=== PATIENT | male | born 1975 | race Caucasian/White ===

== ENCOUNTER 2016-10-23 06:10 | Emergency (ER) | payer BC ==
[2016-10-23] MEDS ORDERED: Sodium Chloride 0.9% 1,000 ML IV ONE ×2 (06:13→06:41)
[2016-10-23] MEDS ORDERED: EPINEPHrine 1:10,000 1 MG/10 ML Syringe ONE (06:19)
[2016-10-23] MEDS ORDERED: Lactated Ringers 1,000 ML IV ONE (06:42)
--- NOTE | 2016-10-23 07:27 | EDM.PDOC ---
ED HPI GENERAL MEDICAL PROBLEM - General Chief Complaint: CPR in Progress Stated Complaint: [facility] Time Seen by Provider: 10/23/16 06:26 Source of Information: Reports: EMS History Limitations: Reports: Other (Unresponsive) - History of Present Illness INITIAL COMMENTS - FREE TEXT/NARRATIVE: This is a 41-year-old male. After talking with his roommates from upstairs to indicate that he has been complaining of not feeling very well for about the last week and over the last couple of days he's been having some nausea and vomiting and diarrhea. They cannot recall whether or not there was blood noted in the diarrhea or the nausea and vomiting. At about 5:30 AM this morning his roommate from upstairs came down to check on him to let him know that he was leaving for work and he found the patient unresponsive. When the EMS arrived he had agonal respirations and a very thin and thready pulse and as they were trying to get him out of the house he lost his pulse and he quit breathing. They started CPR immediately but they were unable to get an IV in on the way to the ER and they were unable to intubate him. As soon as he arrived to the ER at 06:10 AM he was noted to have dilated pupils that were fixed. There were no respirations no heart sounds noted. He was noted to have copious coffee grounds in his mouth and on his face that was suctioned. When he was intubated his oropharynx had to be suctioned of coffee grounds as well but there was no bright red blood noted, he was intubated immediately with a 7.5 tube and the tube was noted to go through the cords and he did have equal breath sounds in the apexes the CO2 detector did not turn and the tube was rechecked and noted to be through the cords he continued to have equal breath sounds in his lungs. Two 18-gauge IVs were started 1 in the right dorsal hand 1 in the left dorsal hand warm fluids were given wide open. He received a total of 2 L of warm fluids during the resuscitation attempt. CPR was not interrupted and epi was given IV for a total of 12 grams during the course of the resuscitation. During the switching of compressions a pulse was checked and each time there was no pulse and the monitor showed asystole. We continued this until 6:49 AM he continued to have no pulse no respirations and no heart sounds the monitor showed asystole his pupils were fixed and dilated and the code was called. After the code was cold it was noted that his father had arrived to the ER as well as his upstairs roommates. I sat down with them in the family room and explained to them what the EMS found in our efforts in order to restart his heart that were unsuccessful. The roommate states that he does not take any medicines. He was noted to have multiple vodka and whiskey empty bottles in his apartment downstairs but the roommate indicates he does not drink alcohol at all. The etiology for his upper GI bleed is unknown. His father and his roommates were given time to visit with the patient here in the ER. ED ROS GENERAL - Review of Systems Review Of Systems: Unable To Obtain ED EXAM, CPR - Physical Exam Exam: See Below Limited By: Unresponsive General Appearance: Other (Noted to have very thick coffee grounds in his mouth and over his face and on his hands) Eye Exam: Bilateral Eye: Other (Pupils were dilated and fixed upon arrival) Throat/Mouth: Other (Lots of coffee grounds in the oropharynx that had to be suctioned prior to intubation) Head: Atraumatic Neck: Other (No carotid pulse was noted upon arrival to the ER) Respiratory Chest: Other (There was no respiratory effort, once he was intubated he was noted to have equal breath sounds in the upper lungs that continued during the entire resuscitation) Cardiovascular: Other (No heart sounds were noted during the resuscitation each time a pulse check was gotten) GI/Abdominal Exam: Other (Morbidly obese) Extremities: Other (Patient had no spontaneous movement during the entire resuscitation) Neurological: Other (Patient did not respond to pain) Comments: When the code was called at 6:49 AM, reassessment of the patient showed fixed and dilated pupils, no carotid pulse, no heart sounds were noted, no spontaneous respirations or agonal respirations were noted, no femoral pulse, and the monitor continued to show asystole. Course - Orders/Labs/Meds Orders: Active Orders 24 hr Category Date Time Status CBC WITH AUTO DIFF [HEME] Stat Lab 10/23/16 06:21 Results DRUG SCREEN, URINE [URCHEM] Stat Lab 10/23/16 06:40 Received ETHANOL BLOOD MEDICAL [CHEM] Stat Lab 10/23/16 06:40 Received Labs: Laboratory Tests 10/23/16 10/23/16 Range/Units 06:21 06:21 WBC 38.42 H (4.23-9.07) K/mm3 RBC 4.94 (4.63-6.08) M/mm3 Hgb 13.9 (13.7-17.5) gm/L Hct 43.9 (40.1-51.0) % MCV 88.9 (79.0-92.2) fl MCH 28.1 (25.7-32.2) pg MCHC 31.7 L (32.2-35.5) g/dl RDW Std Deviation 42.8 (35.1-43.9) fL Plt Count 395 H (163-337) K/mm3 MPV 11.5 (9.4-12.3) fl Neut % (Auto) 66.3 (34.0-67.9) % Lymph % (Auto) 12.0 L (21.8-53.1) % [place] % (Auto) 7.5 (5.3-12.2) % Eos % (Auto) 0.7 L (0.8-7.0) Baso % (Auto) 1.2 (0.1-1.2) % Neut # (Auto) 25.44 H (1.78-5.38) K/mm3 Lymph # (Auto) 4.61 H (1.32-3.57) K/mm3 [place] # (Auto) 2.90 H (0.30-0.82) K/mm3 Eos # (Auto) 0.28 (0.04-0.54) K/mm3 Baso # (Auto) 0.47 H (0.01-0.08) K/mm3 Sodium 131 L (136-145) mEq/L Potassium 9.3 H* (3.5-5.1) mEq/L Chloride 97 L (98-107) mEq/L Carbon Dioxide 6 L* (21-32) mEq/L Anion Gap 37.3 H (5-15) BUN 32 H (7-18) mg/dL Creatinine 3.0 H (0.7-1.3) mg/dL Est Cr Clr Drug Dosing TNP Estimated GFR (MDRD) 23 (>60) mL/min BUN/Creatinine Ratio 10.7 L (14-18) Glucose 754 H* (74-106) mg/dL Calcium 9.2 (8.5-10.1) mg/dL Total Bilirubin 0.5 (0.2-1.0) mg/dL AST 133 H (15-37) U/L ALT 111 H (16-63) U/L Alkaline Phosphatase 144 H (46-116) U/L Total Protein 6.5 (6.4-8.2) g/dl Albumin 2.8 L (3.4-5.0) g/dl Globulin 3.7 gm/dL Albumin/Globulin Ratio 0.8 L (1-2) - Re-Assessments/Exams Free Text/Narrative Re-Assessment/Exam: 10/23/16 07:30 CPR and resuscitation efforts with medications was for a total of 39 minutes with no response. Departure - Departure Time of Disposition: 06:49 Disposition: 20 Preliminary Cause of *Q: Cardiac Arrest Clinical Impression: Cardiopulmonary arrest, Upper GI bleed, Unsuccessful cardiopulmonary resuscitation - Discharge Information Forms: ED Department Discharge Additional Instructions: The emergency medical service manager came to the ER to evaluate the patient, depending upon the emergency medical service manager wishes the patient will be either transferred to the holding room and or the home. - My Orders Last 24 Hours: My Active Orders 10/23/16 06:40 DRUG SCREEN, URINE [URCHEM] Stat ETHANOL BLOOD MEDICAL [CHEM] Stat - Assessment/Plan Last 24 Hours: My Active Orders 10/23/16 06:40 DRUG SCREEN, URINE [URCHEM] Stat ETHANOL BLOOD MEDICAL [CHEM] Stat
== END 2016-10-23 11:00 | disposition expired ==
LOC: JD.ED 06:10
DX: I46.9 Cardiac arrest, cause unspecified (principal); K92.2 Gastrointestinal hemorrhage, unspecified
CPT/HCPCS: 31500; 36415; 51702; 80053; 80306; 85025; 92950; 96361; 96374; 96376; 99291; G0480; J0171; J7040; J7120; 99285-25